=== PATIENT | male | born 1970 | race Caucasian/White ===

== ENCOUNTER 2017-06-09 15:33 | Emergency (ER) | payer MEDICAID ==
[~2017-06-09] VITALS: Ht 170.2 cm; Wt 80.5 kg
[~2017-06-09 15:33] MED LIST: CIPR500T4 PO; DOCU-144 PO; FAMO20TA18 PO; FLORANEX PO; HYDR-3498 PO; METR500T PO
[2017-06-09 15:39] VITALS: Ht 170.2 cm; Wt 80.5 kg
[2017-06-09] MEDS ORDERED: KETOROLAC 60 MG INJ IM STA (16:01)
[2017-06-09] MEDS ORDERED: HYDROCODONE/APAP (5/325) TAB PO ONE (16:30)
[2017-06-09] MEDS ORDERED: FLUORESCEIN STRIP LEFT EYE ONE (16:30)
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
[2017-06-09] MEDS ORDERED: IBUP-1542 PO (17:24)
[2017-06-09] MEDS ORDERED: HYDR-906 PO (17:24)
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
== END 2017-06-09 17:45 | disposition home or self-care (01) ==
LOC: FTE 15:33
DX: S22.088A Other fracture of T11-T12 vertebra, initial encounter for closed fracture (principal); Y04.2XXA Assault by strike against or bumped into by another person, initial encounter
CPT/HCPCS: 70486; 72131; 96372; J1885; Z7502; Z7610